=== PATIENT | female | born 1955 | race Caucasian/White ===

== ENCOUNTER 2019-06-01 10:50 | Outpatient (CLI) | payer MEDICARE, MEDICAID ==
[~2019-06-01 10:50] MED LIST: ACID1GRA3 PO; ASPI-515 PO; ATEN25TA PO; ATOR10TA PO; CARV6.2512 PO; DIVA250T4 PO; ENOX80SY5 SQ; FLUT1DIS3 INH; FURO-92 PO; FURO-93 PO; GEMF600T PO; HYDR-36 PO; IPRA3AMP30 NPPB; LISI5TAB7 PO; LOPID PO; MAGN400T26 PO; METO25TA35 PO; NICO-487 TD; PANT40TA3 PO; POLY17PO5 PO; POTA10TA6 PO; REGADENOSON 0.4 MG/5 ML SYRINGE ONE; SPIR25TA PO; SULF-169 PO; SULF1TAB24 PO; TIOT18CA INH; TRAM50TA2 PO; WARF-36 PO; WARF2.5T PO; WARF5TAB PO
== END 2019-06-01 23:59 | disposition home or self-care (01) ==
LOC: CFH 10:50
PROVIDERS: ATTEND Internal Medicine Cardiovascular Disease
DX: I35.8 Other nonrheumatic aortic valve disorders (principal); I10 Essential (primary) hypertension; E78.5 Hyperlipidemia, unspecified; J44.9 Chronic obstructive pulmonary disease, unspecified; I42.9 Cardiomyopathy, unspecified; I25.2 Old myocardial infarction; Z87.891 Personal history of nicotine dependence
CPT/HCPCS: 93306; J2785

== ENCOUNTER 2019-08-10 08:36 | Outpatient (CLI) | payer MEDICARE, MEDICAID | END 2019-08-10 23:59 | disposition home or self-care (01) | LOC: CFH 08:36 | PROVIDERS: ATTEND Internal Medicine Cardiovascular Disease | DX: I25.2 Old myocardial infarction (principal); I10 Essential (primary) hypertension; R93.1 Abnormal findings on diagnostic imaging of heart and coronary circulation | CPT/HCPCS: 78452; 78469; 93017; J2785; A9502 ==

== ENCOUNTER → 2019-09-07 | Outpatient (CLI) | payer MEDICARE, MEDICAID ==
[~2019-09-07] MED LIST changes: -REGADENOSON 0.4 MG/5 ML SYRINGE ONE
[2019-09-07 18:46] LABS: ALBUMIN 3.6 g/dL (3.4-5.0); ANION GAP 6 mmol/L (5-15); BASOPHILS # (AUTO) 0.07 x10^3/uL (0-0.1); BASOPHILS % (AUTO) 1 % (0-1); CALCIUM 9.5 mg/dL (8.5-10.1); CHLORIDE 107 mmol/L (98-107); CHOLESTEROL, TOTAL 188 mg/dL (140-239); EOSINOPHILS # (AUTO) 0.18 x10^3/uL (0-0.4); EOSINOPHILS % (AUTO) 2 % (1-7); LYMPHOCYTES # (AUTO) 2.39 x10^3/uL (1-3.4); LYMPHOCYTES % (AUTO) 21 % (22-44); MD NO; MEAN CORPUSCULAR HEMOGLOBIN 30.4 pg (27.0-34.8); MEAN CORPUSCULAR HGB CONC 33.3 g/dL (32.4-35.8); MEAN CORPUSCULAR VOLUME 91.2 fL (80-100); MEAN PLATELET VOLUME 10.5 fL (7.4-10.4); MONOCYTES # (AUTO) 0.73 x10^3/uL (0.2-0.8); MONOCYTES % (AUTO) 7 % (2-9); NEUTROPHILS # (AUTO) 7.82 x10^3/uL (1.8-6.8); NEUTROPHILS % (AUTO) 70 % (42-75); PLATELET COUNT 321 x10^3/uL (130-400); RED BLOOD COUNT 5.28 x10^6/uL (3.82-5.3); RED CELL DISTRIBUTION WIDTH 15.5 % (9.6-15.2)
[2019-09-07 18:51] LABS: ALANINE AMINOTRANSFERASE 22 U/L (12-78); ALKALINE PHOSPHATASE 85 U/L (45-117); BILIRUBIN,TOTAL 0.5 mg/dL (0.2-1.0); CHOL/HDL RATIO 5.5; CREATININE 1.03 mg/dL (0.55-1.02); HDL CHOL % 18 % (28-40); HDL CHOLESTEROL (DIRECT) 34 mg/dL (40-60); LDL CHOLESTEROL,CALCULATED 108 mg/dL (54-169); LDL/HDL RATIO 3.2 (0.5-3.0); TRIGLYCERIDES 232 mg/dL (50-200); VLDL CHOLESTEROL 46 mg/dL (0-25)
== END | disposition home or self-care (01) ==
LOC: CFH 14:05
PROVIDERS: ATTEND Internal Medicine Cardiovascular Disease
DX: B01.9 Varicella without complication (principal); B19.20 Unspecified viral hepatitis C without hepatic coma; D68.51 Activated protein C resistance; E78.5 Hyperlipidemia, unspecified; F17.200 Nicotine dependence, unspecified, uncomplicated; G40.909 Epilepsy, unspecified, not intractable, without status epilepticus; G62.9 Polyneuropathy, unspecified; G89.4 Chronic pain syndrome
CPT/HCPCS: 36415; 80053; 80061; 85025

== ENCOUNTER 2019-09-17 09:54 | Inpatient (IN) | payer MEDICAID, MEDICARE ==
[~2019-09-17] VITALS: Ht 167.6 cm; Wt 105.3 kg
[2019-09-17 10:27] VITALS: BP 129/84
[2019-09-17] MEDS ORDERED: ACYC-114 PO (10:52)
[2019-09-17] MEDS ORDERED: CARV3.1212 PO (10:52)
[2019-09-17] MEDS ORDERED: ALBU90AE INH (10:52)
[2019-09-17] MEDS ORDERED: POTA20TA6 PO (10:52)
[2019-09-17] MEDS ORDERED: ALBU18HF INH (10:52)
[2019-09-17] MEDS ORDERED: ASPI-650 PO (10:52)
[2019-09-17] MEDS ORDERED: FURO20TA3 PO (10:52)
[2019-09-17] MEDS ORDERED: LOSA25TA25 PO (10:52)
[2019-09-17] MEDS ORDERED: GABA300C10 PO (10:52)
[2019-09-17] MEDS ORDERED: CYAN25009 PO (10:52)
[2019-09-17 10:54] LABS: INTERNATIONAL NORMALIZED RATIO 0.94 (0.93-1.1)
[2019-09-17] MEDS ORDERED: TIOT18CA INH (10:55)
[2019-09-17] MEDS ORDERED: FENTANYL PF 100 MCG/2ML ONE (11:42)
[2019-09-17] MEDS ORDERED: LIDOCAINE 2%, 20ML ONE (11:43)
[2019-09-17] MEDS ORDERED: MIDAZOLAM 1 MG/ML, 5ML ONE (11:43)
[2019-09-17] MEDS ORDERED: BIVALIRUDIN 250 MG ONE ×2 (12:31→13:14)
[2019-09-17] MEDS ORDERED: TICAGRELOR 90 MG TABLET ONE ×2 (12:31→13:10)
[2019-09-17] MEDS ORDERED: ASPIRIN 325 MG TABLET EC ONE (13:10)
[2019-09-17 13:30] VITALS: BP 123/83
[2019-09-17] MEDS: SODIUM CHLORIDE 0.9% 1,000 ML IV SCH ×2 (13:30→21:09)
[2019-09-17] MEDS: BIVALIRUDIN 250 MG in SODIUM CHLORIDE 0.9% 50 ML IV SCH ×2 (13:42→14:55)
[2019-09-17 21:08] VITALS: BP 150/90
[2019-09-17] MEDS: TICAGRELOR 90 MG TABLET PO SCH (21:16)
[2019-09-17] MEDS: CARVEDILOL 12.5 MG TABLET PO SCH (21:16)
[2019-09-17] MEDS: GABAPENTIN 300 MG CAPSULE PO SCH (21:16)
[2019-09-17] MEDS: ACYCLOVIR 400 MG TABLET PO SCH (21:17)
[2019-09-18 01:35] VITALS: BP 146/88
[2019-09-18] MEDS: SODIUM CHLORIDE 0.9% 1,000 ML IV SCH (05:09)
[2019-09-18 05:13] LABS: ANION GAP 5 mmol/L (5-15); CALCIUM 8.4 mg/dL (8.5-10.1); CHLORIDE 109 mmol/L (98-107); CREATININE 0.93 mg/dL (0.55-1.02)
[2019-09-18 07:20] VITALS: BP 156/95
[2019-09-18] MEDS ORDERED: LOSARTAN 25MG TABLET PO SCH (09:00)
[2019-09-18] MEDS ORDERED: ASPIRIN 81 MG TABLET EC PO SCH (09:00)
[2019-09-18] MEDS ORDERED: ASPI81TA45 PO (09:00)
[2019-09-18] MEDS ORDERED: TICA90TA PO (09:00)
[2019-09-18] MEDS ORDERED: ATOR40TA PO (09:03)
[2019-09-18] MEDS: GABAPENTIN 300 MG CAPSULE PO SCH (09:39)
[2019-09-18] MEDS: TICAGRELOR 90 MG TABLET PO SCH (09:39)
[2019-09-18] MEDS: CARVEDILOL 12.5 MG TABLET PO SCH (09:39)
[2019-09-18] MEDS: ACYCLOVIR 400 MG TABLET PO SCH (09:40)
[2019-09-18] MEDS ORDERED: FLU VACC QS2019-20 36MOS UP/PF 0.5 ML IM-VACC ONE (12:00)
== END 2019-09-18 12:30 | disposition home or self-care (01) | DRG 246 ==
LOC: CACL 09:54 → EDIP 13:09 → 5SO 13:32 → DCLOUNGE 09-18 12:19
PROVIDERS: ADMIT Internal Medicine Cardiovascular Disease; ATTEND Internal Medicine Cardiovascular Disease
PROC: 027135Z Dilation of Coronary Artery, Two Arteries with Two Drug-eluting Intraluminal Devices, Percutaneous Approach (ICD-10-PCS; principal; 2019-09-17)
PROC: 4A023N7 Measurement of Cardiac Sampling and Pressure, Left Heart, Percutaneous Approach (ICD-10-PCS; 2019-09-17)
PROC: B211YZZ Fluoroscopy of Multiple Coronary Arteries using Other Contrast (ICD-10-PCS; 2019-09-17)
PROC: B215YZZ Fluoroscopy of Left Heart using Other Contrast (ICD-10-PCS; 2019-09-17)
DX: I25.110 Atherosclerotic heart disease of native coronary artery with unstable angina pectoris (principal); I50.31 Acute diastolic (congestive) heart failure; D68.59 Other primary thrombophilia; E78.5 Hyperlipidemia, unspecified; F17.200 Nicotine dependence, unspecified, uncomplicated; I11.0 Hypertensive heart disease with heart failure; J44.9 Chronic obstructive pulmonary disease, unspecified; I25.89 Other forms of chronic ischemic heart disease; M06.9 Rheumatoid arthritis, unspecified; Z23 Encounter for immunization; Z91.19 Patient's noncompliance with other medical treatment and regimen; Z79.899 Other long term (current) drug therapy; M32.9 Systemic lupus erythematosus, unspecified
CPT/HCPCS: 36415; 80048; 85610; 85730; 90686; 93005; 93458; 99156; 99157; C1760; C1769; C1894; C9600; G0378; J0583; J2250; J3010; C1874; C1887; Q9967

== ENCOUNTER → 2019-10-14 | Outpatient (CLI) | payer MEDICARE, MEDICAID ==
[~2019-10-14] MED LIST changes: +ACYC-114 PO; +ALBU18HF INH; +ALBU90AE INH; +ASPI-650 PO; +ASPI81TA45 PO; +ATOR40TA PO; +CARV3.1212 PO; +CYAN25009 PO; +FURO20TA3 PO; +GABA300C10 PO; +LOSA25TA25 PO; +POTA20TA6 PO; +TICA90TA PO
[2019-10-14 13:11] LABS: BASOPHILS # (AUTO) 0.08 x10^3/uL (0-0.1); BASOPHILS % (AUTO) 1 % (0-1); EOSINOPHILS # (AUTO) 0.12 x10^3/uL (0-0.4); EOSINOPHILS % (AUTO) 1 % (1-7); LYMPHOCYTES # (AUTO) 2.17 x10^3/uL (1-3.4); LYMPHOCYTES % (AUTO) 22 % (22-44); MD NO; MEAN CORPUSCULAR HEMOGLOBIN 30.9 pg (27.0-34.8); MEAN CORPUSCULAR HGB CONC 33.7 g/dL (32.4-35.8); MEAN CORPUSCULAR VOLUME 91.7 fL (80-100); MEAN PLATELET VOLUME 9.8 fL (7.4-10.4); MONOCYTES # (AUTO) 0.55 x10^3/uL (0.2-0.8); MONOCYTES % (AUTO) 6 % (2-9); NEUTROPHILS # (AUTO) 6.79 x10^3/uL (1.8-6.8); NEUTROPHILS % (AUTO) 70 % (42-75); PLATELET COUNT 310 x10^3/uL (130-400); RED BLOOD COUNT 5.27 x10^6/uL (3.82-5.3); RED CELL DISTRIBUTION WIDTH 16.2 % (9.6-15.2)
[2019-10-14 16:06] LABS: CHLORIDE 105 mmol/L (98-107)
[2019-10-14 16:25] LABS: ALANINE AMINOTRANSFERASE 23 U/L (12-78); ALBUMIN 3.7 g/dL (3.4-5.0); ALKALINE PHOSPHATASE 106 U/L (45-117); ANION GAP 8 mmol/L (5-15); BILIRUBIN,TOTAL 0.8 mg/dL (0.2-1.0); CALCIUM 9.4 mg/dL (8.5-10.1); HDL CHOLESTEROL (DIRECT) 33 mg/dL (40-60); TOTAL PROTEIN 7.9 g/dL (6.4-8.2); TRIGLYCERIDES 275 mg/dL (50-200); VLDL CHOLESTEROL 55 mg/dL (0-25)
[2019-10-14 21:52] LABS: CHOL/HDL RATIO 4.4; CHOLESTEROL, TOTAL 146 mg/dL (140-239); HDL CHOL % 23 % (28-40); LDL CHOLESTEROL,CALCULATED 58 mg/dL (54-169); LDL/HDL RATIO 1.8 (0.5-3.0)
== END | disposition home or self-care (01) ==
LOC: CFH 09:48
PROVIDERS: ATTEND Nurse Practitioner Family
DX: D68.59 Other primary thrombophilia (principal); I25.10 Atherosclerotic heart disease of native coronary artery without angina pectoris; I50.9 Heart failure, unspecified; J44.9 Chronic obstructive pulmonary disease, unspecified; M32.9 Systemic lupus erythematosus, unspecified
CPT/HCPCS: 36415; 80053; 80061; 85025

== ENCOUNTER 2019-12-02 12:18 | Outpatient (CLI) | payer MEDICARE, MEDICAID | END 2019-12-02 23:59 | disposition home or self-care (01) | LOC: CFH 12:18 | PROVIDERS: ATTEND Nurse Practitioner Family | DX: Z02.9 Encounter for administrative examinations, unspecified (principal) ==

== ENCOUNTER → 2019-12-25 | Outpatient (CLI) | payer MEDICARE, MEDICAID ==
[2019-12-25 12:59] LABS: CHLORIDE 105 mmol/L (98-107)
[2019-12-25 13:08] LABS: ALANINE AMINOTRANSFERASE 20 U/L (12-78); ALBUMIN 3.4 g/dL (3.4-5.0); ALKALINE PHOSPHATASE 127 U/L (45-117); ANION GAP 5 mmol/L (5-15); BILIRUBIN,TOTAL 0.8 mg/dL (0.2-1.0); CALCIUM 9.4 mg/dL (8.5-10.1); CREATININE 1.23 mg/dL (0.55-1.02); TOTAL PROTEIN 7.6 g/dL (6.4-8.2); TRIGLYCERIDES 307 mg/dL (50-200); VLDL CHOLESTEROL 61 mg/dL (0-25)
[2019-12-25 13:09] LABS: CHOL/HDL RATIO 4.6; CHOLESTEROL, TOTAL 157 mg/dL (140-239); HDL CHOL % 22 % (28-40); HDL CHOLESTEROL (DIRECT) 34 mg/dL (40-60); LDL CHOLESTEROL,CALCULATED 62 mg/dL (54-169); LDL/HDL RATIO 1.8 (0.5-3.0)
== END | disposition home or self-care (01) ==
LOC: CFH 09:53
PROVIDERS: ATTEND Internal Medicine Hematology & Oncology
DX: I25.10 Atherosclerotic heart disease of native coronary artery without angina pectoris (principal); D68.59 Other primary thrombophilia; M06.9 Rheumatoid arthritis, unspecified; F17.200 Nicotine dependence, unspecified, uncomplicated
CPT/HCPCS: 36415; 80053; 80061; 85305; 85306